=== PATIENT | male | born 1940 | race Caucasian/White ===

== ENCOUNTER 2016-05-29 16:17 | Emergency (ER) | payer OTHER ==
[~2016-05-29] VITALS: Ht 167.6 cm; Wt 90.0 kg
[~2016-05-29 16:17] MED LIST: BACTDS PO; CEPH-443 PO; PRED20TA PO
[2016-05-29] MEDS ORDERED: morphine 2 MG INJ IV STA (16:26)
[2016-05-29] MEDS ORDERED: SOD CHLORIDE 0.9% 1,000 ML IV STA (16:26)
[2016-05-29] MEDS ORDERED: ONDANSETRON 4 MG INJ IV STA (16:26)
[2016-05-29] MEDS ORDERED: DIPHENHYDRAMINE 50 MG INJ IV ONE (16:30)
[2016-05-29 16:43] VITALS: Ht 167.6 cm; Wt 90.0 kg
[2016-05-29 17:05] LABS: BASOPHIL # 0.1 10^3/ul (0.0-0.1); BASOPHILS % 0.6 % (0.0-2.0); EOSINOPHILS # 0.8 10^3/ul (0.0-0.5); EOSINOPHILS % 8.2 % (0.0-7.0); HEMATOCRIT 45.1 % (42.0-52.0); HEMOGLOBIN 15.2 g/dl (14.0-18.0); LYMPHOCYTES # 1.8 10^3/ul (0.8-2.9); LYMPHOCYTES % 18.4 % (15.0-51.0); MEAN CORPUSCULAR HGB CONC 33.7 g/dl (32.0-37.0); MEAN CORPUSCULAR VOLUME 91.9 fl (82.0-101.0); MEAN PLATELET VOLUME 7.2 fl (7.4-10.4); MONOCYTE # 1.2 10^3/ul (0.3-0.9); MONOCYTES % 12.1 % (0.0-11.0); NEUTROPHILS % 60.7 % (39.0-77.0); PLATELET COUNT 208 10^3/UL (140-440); RED BLOOD COUNT 4.91 10^6/ul (4.70-6.10); RED CELL DISTRIBUTION WIDTH 13.8 % (11.5-14.5)
[2016-05-29 17:06] LABS: CONDITION 1
[2016-05-29 17:15] LABS: ALBUMIN 3.9 g/dl (3.3-4.9)
--- NOTE | 2016-05-29 17:15 | RADRPT ---
PROCEDURE: CR, chest CLINICAL INDICATION: Shortness of breath. TECHNIQUE: AP chest. COMPARISON: None available. FINDINGS: The heart is somewhat enlarged. There is no acute infiltrate in the lungs. No pleural effusion. IMPRESSION: 1. Mild cardiomegaly. RPTAT: GG .Fran Grimaldo MD, Date Time Electronically viewed and signed by .Fran Grimaldo MD, on 05/29/2016 17:14 .Y/
[2016-05-29 17:16] LABS: POTASSIUM 4.5 mmol/L (3.5-5.1)
[2016-05-29 17:18] LABS: ALBUMIN/GLOBULIN RATIO 1.44; CREATININE 0.75 mg/dl (0.61-1.24); TOTAL PROTEIN 6.6 g/dl (6.1-8.1)
[2016-05-29 17:19] LABS: CALCIUM 8.7 mg/dl (8.4-10.2)
[2016-05-29] MEDS ORDERED: METHYLPREDNISOLONE 125 MG INJ IV ONE (18:00)
--- NOTE | 2016-05-29 18:04 | ERD ---
ER Documentation Chief Complaint Date/Time DATE: 05/29/16 TIME: 18:02 Chief Complaint BIB RA FOR EVAL OF GENERALIZED RASH HPI This is a 76-year-old male who presents to the emergency room for evaluation of a rash. This patient was seen in the emergency room earlier this month and was diagnosed with impetigo discharged home. This patient did go to a research associate [facility] as well and was given antibiotics. This patient presents to the ER today for pain all over his body, and increased itching. He has finished a course of Bactrim, prednisone, and Keflex ROS All systems reviewed and are negative except as per history of present illness. Medications Home Meds Active Scripts Cephalexin* (Keflex*) 500 Mg Capsule, 500 MG PO QID for 10 Days, CAP Prov:AVA GONZALEZ PA-C 05/16/16 Sulfamethoxazole-Trimethoprim* (Bactrim* DS) 800-160 Mg Tab, 1 TAB PO BID for 10 Days, TAB Prov:AVA GONZALEZ PA-C 05/16/16 Prednisone* (Prednisone*) 20 Mg Tab, 60 MG PO DAILY for 5 Days, TAB Prov:AVA GONZALEZ PA-C 05/16/16 PMhx/Soc Hx Cardiac Disorders: Yes (HTN) Hx Alcohol Use: No Hx Substance Use: No Hx Tobacco Use: No Physical Exam Vitals Vital Signs Date Time Temp Pulse Resp B/P Pulse Ox O2 Delivery O2 Flow Rate FiO2 05/29/16 16:43 97.9 95 19 144/80 99 Physical Exam Const: No acute distress Head: Atraumatic Eyes: Normal Conjunctiva ENT: Normal External Ears, Nose and Mouth. Neck: Full range of motion..~ No meningismus. Resp: Clear to auscultation bilaterally Cardio: Regular rate and rhythm, no murmurs Abd: Soft, non tender, non distended. Normal bowel sounds Skin: Diffuse maculopapular rash noted over torso, right and left upper extremities and right lower extremity with superimposed honey crusted scales. Negative Mikulski sign Back: No midline or flank tenderness Ext: No cyanosis, or edema Neur: Awake and alert Psych: Normal Mood and Affect Result Diagram: 05/29/16 1655 05/29/16 1655 Results 24 hrs Laboratory Tests Test 05/29/16 16:55 Alanine Aminotransferase (ALT/SGPT) 29IU/L Albumin 3.9g/dl Albumin/Globulin Ratio 1.44 Alkaline Phosphatase 86IU/L Anion Gap 16 Aspartate Amino Transf (AST/SGOT) 17IU/L Basophils # 0.110^3/ul Basophils % 0.6% Blood Morphology Comment Blood Urea Nitrogen 15mg/dl Calcium Level 8.7mg/dl Carbon Dioxide Level 26mmol/L Chloride Level 102mmol/L Creatinine 0.75mg/dl Direct Bilirubin 0.00mg/dl Eosinophils # 0.810^3/ul Eosinophils % 8.2% Globulin 2.70g/dl Glucose Level 156mg/dl Hematocrit 45.1% Hemoglobin 15.2g/dl Indirect Bilirubin 1.0mg/dl Lymphocytes # 1.810^3/ul Lymphocytes % 18.4% Mean Corpuscular Hemoglobin 31.0pg Mean Corpuscular Hemoglobin Concent 33.7g/dl Mean Corpuscular Volume 91.9fl Mean Platelet Volume 7.2fl Monocytes # 1.210^3/ul Monocytes % 12.1% Neutrophils # 6.010^3/ul Neutrophils % 60.7% Nucleated Red Blood Cells # 0.010^3/ul Nucleated Red Blood Cells % 0.0/100WBC Platelet Count 84236^3/UL Potassium Level 4.5mmol/L Red Blood Count 4.9110^6/ul Red Cell Distribution Width 13.8% Sodium Level 139mmol/L Total Bilirubin 1.0mg/dl Total Protein 6.6g/dl White Blood Count 10.010^3/ul Current Medications Medications (Trade) Dose Ordered Sig/[place] Route PRN Reason Start Time Stop Time Status Last Admin Dose Admin Sodium Chloride (NS) 1,000 ml @ 1,000 mls/hr Q1H STAT IV 05/29/16 16:26 05/29/16 17:25 DC 05/29/16 16:26 Morphine Sulfate (morphine) 2 mg ONCE STAT IV 05/29/16 16:26 05/29/16 16:28 DC 05/29/16 16:26 Ondansetron HCl (Zofran Inj) 4 mg ONCE STAT IV 05/29/16 16:26 05/29/16 16:28 DC 05/29/16 16:26 Diphenhydramine HCl (Benadryl) 25 mg ONCE ONCE IV 05/29/16 16:30 05/29/16 16:31 DC 05/29/16 16:30 Methylprednisolone Sodium Succinate (Solu-Medrol) 125 mg ONCE ONCE IV 05/29/16 18:00 05/29/16 18:01 DC Procedures/MDM This 76-year-old male presents to the emergency room for evaluation of a rash. This patient did have a maculopapular rash on my examination, lab work was obtained which does not show any leukocytosis. I do not feel that this is infection at this time, and more inflammatory and allergic. The patient did finish a course of antibiotics which did not help. The patient was given Solu- Medrol here in the emergency room and Benadryl. He will be discharged home with a prescription for hydrocortisone cream, and prednisone. Departure Diagnosis: Primary Impression: Rash and other nonspecific skin eruption Additional Impression: Allergic dermatitis Condition: Stable OSMAN REYNOLDS DO May 29, 2016 18:04
[2016-05-29] MEDS ORDERED: HC30CR25 TOP (18:05)
[2016-05-29] MEDS ORDERED: PRED20TA PO (18:05)
[2016-05-29 19:13] VITALS: BP 135/72; PULSE 70; RESP 18; TEMP 98.6
== END 2016-05-29 19:15 | disposition home or self-care (01) ==
LOC: E/R 16:17
DX: R21 Rash and other nonspecific skin eruption (principal); I10 Essential (primary) hypertension; L23.9 Allergic contact dermatitis, unspecified cause
CPT/HCPCS: 71010; 80053; 85025; 96374; 96375; 99284; J1200; J2270; J2405; J2930; J7030